=== PATIENT | female | born 1975 | race African-American/Black ===

== ENCOUNTER 2021-06-19 17:33 | Emergency (ER) | payer OTHER ==
[~2021-06-19] VITALS: Ht 162.6 cm; Wt 73.0 kg
[2021-06-19 17:35] VITALS: BP 125/68
[2021-06-19] MEDS ORDERED: SODIUM CHLORIDE 0.9% 1,000 ML IV ONE (19:45)
[2021-06-19 20:05] LABS: BASOPHILS % 0.2 % (0.0-2.0); EOSINOPHILS % 0.2 % (0.0-5.0); HEMATOCRIT. 40.5 % (36.0-48.0); HEMOGLOBIN. 12.7 g/dL (12.0-16.0); LYMPHOCYTES % 10.2 % (20.0-50.0); MEAN CORPUSCULAR HEMOGLOBIN 21.7 pg (28.0-32.0); MEAN CORPUSCULAR VOLUME 68.9 fL (81.0-99.0); MEAN PLATELET VOLUME 8.1 fl (7.4-10.4); NEUTROPHILS % 82.4 % (40.0-76.0); PLATELET 333 x1000/uL (130-400); RED BLOOD CELL COUNT 5.89 mill/uL (4.2-5.4)
[2021-06-19 20:12] LABS: CHLORIDE 108 mEq/L (98-107)
[2021-06-19 20:15] LABS: HCG SCREEN NEGATIVE
[2021-06-19 20:26] LABS: PLATELET ESTIMATE NORMAL
== END 2021-06-19 21:16 | disposition home or self-care (01) ==
LOC: ER 17:33
DX: R55 Syncope and collapse (principal); I10 Essential (primary) hypertension; E78.00 Pure hypercholesterolemia, unspecified
CPT/HCPCS: 36415; 80053; 84703; 85025; 93005; 96360; 99284; J7030